=== PATIENT | male | born 2000 | race Two or more races ===

== ENCOUNTER → 2024-11-13 | Outpatient (CLI) | payer MEDICAID, SELFPAY ==
--- NOTE | 2024-11-13 15:00 | XR_ITS ---
Examination: Breast ultrasound, unilateral, right complete Date and time of exam: November 13, 2024 1531 hours INDICATIONS: Right nipple discharge beginning 6 months ago Technique: Real-time rdoríguez scale ultrasonographic imaging performed right breast including all 4 quadrants as well as nipple retroareolar and axillary region. Findings: No cystic or solid mass Dilated ducts retroareolar IMPRESSION: BI-RADS Category 2: Benign findings
--- NOTE | 2024-11-13 15:30 | XR_ITS ---
Examination: Diagnostic digital mammography, unilateral, right Computer aided detection 3-D breast Tomosynthesis, unilateral Date and time of exam: November 13, 2024 1347 hours INDICATIONS: Right nipple discharge beginning 6 months ago Technique: Nonmagnified MLO, CC views of the right breast have been obtained, reconstructed from 3-D Tomosynthesis images. R2 computer aided detection program utilized for evaluation of suspicious masses and/or abnormal calcifications. 3-D Tomosynthesis images obtained. Findings: Scattered areas of fibroglandular density. No suspicious masses Impression: BI-RADS category 2: Benign findings Recommend repeating the right breast sonogram in 3-6 months
== END | disposition home or self-care (01) ==
PROVIDERS: PCP Family Medicine; Referring Provider Registered Nurse Gerontology; Visit Provider Registered Nurse Gerontology
DX: R92.321 Mammographic fibroglandular density, right breast (principal); N64.52 Nipple discharge
CPT/HCPCS: 76641; 77061; 77065; G0279